=== PATIENT | male | born 1940 | race Caucasian/White ===

== ENCOUNTER 2017-02-17 22:45 | Inpatient (IN) | payer MEDICARE, BC ==
[2017-02-17] MEDS ORDERED: SODIUM CHLORIDE 0.9% 500 ML IV ONE (23:01)
--- NOTE | 2017-02-17 23:05 | Emergency Department Record ---
History of Present Illness - General Chief Complaint: General Stated Complaint: EUSEBIO Time Seen by Provider: 02/17/17 23:00 Source: Patient - History of Present Illness Initial Comments: The patient and his are visiting from [place] because they used to live here. noticed that his incision from his hip surgery began draining yesterday from the lower portion in his distal thigh. He had his hip surgery done earlier this year in October in [place]. In December he had a wound infection in the incision which was treated as an out patient with an antibiotic pill-- she thinks it was doxycycline and got better.This time the drainage is more at the lowest part of his incision in a different location along the incision. The skin around it has also become reddened. He states he feels like his heart is pounding inside his chest, he had uncontrollable shaking chills and rigors at home, and he is weak all over. He has not recorded a fever at home. Symptoms began about 1-2 hours ago. He denies chest pain, HENRIETTA, hdz, st, cough, ap, n, v , or urinary symptoms. MD Complaint: Weakness, Other (shakey, palpitations) - Related Data Home Medications Medication Instructions Recorded Confirmed Last Taken Canagliflozin [Invokana] 300 mg PO DAILY 02/17/17 02/17/17 Unknown Fenofibrate [Lipofen] 160 mg PO DAILY 02/17/17 02/17/17 Unknown Glimepiride [Amaryl] 4 mg PO DAILY 02/17/17 02/17/17 Unknown Pioglitazone HCl [Actos] 45 mg PO DAILY 02/17/17 02/17/17 Unknown Ramipril [Altace] 10 mg PO DAILY 02/17/17 02/17/17 Unknown Rosuvastatin Calcium [Crestor] 10 mg PO DAILY 02/17/17 02/17/17 Unknown Sitagliptin Phosphate [Januvia] 100 mg PO DAILY 02/17/17 02/17/17 Unknown Solifenacin Succinate [Vesicare] 5 mg PO DAILY 02/17/17 02/17/17 Unknown Allergies Allergy/AdvReac Type Severity Reaction Status Date / Time No Known Drug Allergies Allergy Verified 02/17/17 22:54 Review of Systems Reviewed: No additional complaints except as noted below Constitutional: Reports: As per HPI. Denies: Chills, Fever, Malaise, Night sweats, Weakness, Weight change Eyes: Reports: As per HPI. Denies: Eye discharge, Eye pain, Photophobia, Vision change ENT: Reports: As per HPI. Denies: Congestion, Dental pain, Ear pain, Epistaxis , Hearing loss, Throat pain Respiratory: Reports: As per HPI. Denies: Cough, Dyspnea, Hemoptysis, Stridor, Wheezes Cardiovascular: Reports: As per HPI. Denies: Arrhythmia, Chest pain, Dyspnea on exertion, Edema, Murmurs, Orthopnea, Palpitations, Paroxysmal nocturnal dyspnea, Rheumatic Fever, Syncope Endocrine: Reports: As per HPI. Denies: Fatigue, Heat or cold intolerance, Polydipsia, Polyuria Gastrointestinal: Reports: As per HPI. Denies: Abdominal pain, Constipation, Diarrhea, Hematemesis, Hematochezia, Melena, Nausea, Vomiting Genitourinary: Reports: As per HPI. Denies: Dysuria, Frequency, Hematuria, Incontinence, Retention, Testicular pain, Testicular mass, Urgency Musculoskeletal: Reports: As per HPI. Denies: Arthralgia, Back pain, Gout, Joint swelling, Myalgia, Neck pain Skin: Reports: As per HPI. Denies: Bruising, Change in color, Change in hair/ nails, Lesions, Pruritus, Rash Neurological: Reports: As per HPI. Denies: Abnormal gait, Confusion, Headache, Numbness, Paresthesias, Seizure, Tingling, Tremors, Vertigo, Weakness Psychiatric: Reports: As per HPI. Denies: Anxiety, Auditory hallucinations, Depression, Homicidal thoughts, Suicidal thoughts, Visual hallucinations Hematological/Lymphatic: Reports: As per HPI. Denies: Anemia, Blood Clots, Easy bleeding, Easy bruising, Swollen glands Past Medical History - SOCIAL HISTORY Smoking Status: Never smoker Alcohol Use: Rare - RESPIRATORY Hx Respiratory Disorders: No - CARDIOVASCULAR Hx Cardio Disorders: Yes Hx Hypertension: Yes - ENDOCRINE Hx Endocrine Disorders: Yes Hx Diabetes: Yes - PSYCH Hx Anxiety: Yes Physical Exam - General General Appearance: Alert, Oriented x3, Cooperative, No acute distress - Head Head exam: Normal inspection - Eye Eye exam: Normal appearance, PERRL Pupils: Normal accommodation - ENT ENT exam: Normal exam, Mucous membranes moist, Normal external ear exam, Normal orophraynx, TM's normal bilaterally Ear exam: Normal external inspection. negative: External canal tenderness Nasal Exam: Normal inspection. negative: Discharge, Sinus tenderness Mouth exam: Normal external inspection, Tongue normal Teeth exam: Normal inspection. negative: Dental caries Throat exam: Normal inspection. negative: Tonsillar erythema, Tonsillar exudate - Neck Neck exam: Normal inspection, Full ROM. negative: Tenderness - Respiratory Respiratory exam: Normal lung sounds bilaterally. negative: Respiratory distress - Cardiovascular Cardiovascular Exam: Normal rhythm, Normal heart sounds, Tachycardia - GI/Abdominal GI/Abdominal exam: Soft, Normal bowel sounds. negative: Tenderness - Rectal Rectal exam: Deferred - exam: Deferred - Extremities Extremities exam: Normal inspection, Full ROM, Normal capillary refill, Tenderness (Tenderness, erythema and drainage along distal most portion of surgical right hip incision. ) - Back Back exam: Reports: Normal inspection, Full ROM. Denies: Muscle spasm, Rash noted, Tenderness - Neurological Neurological exam: Alert, CN II-XII intact, Normal gait, Oriented X3, Reflexes normal - Psychiatric Psychiatric exam: Normal affect, Normal mood - Skin Skin exam: Dry, Intact, Normal color, Warm Course - Reevaluation(s) Reevaluation #1: Patient states that he is feeling more shakey and pounding inside again. He doesn't feel right. 02/18/17 00:27 Reevaluation #2: Wound culture taken after skin prep with betadine in sterile fashion. Drainage is pyrulent yellow-green in color. localized erythema around wound edges, without obvious fluctuance. 02/18/17 00:28 Reevaluation #3: Patient continues to have intermittent episodes of feeling terrible, shakey inside, and tachycardia which is intermittent. 02/18/17 01:32 Medical Decision Making - Management Options MDM Management: Additional Work-up Planned (e.g. ADM/Transfer/OP Study) ( Admission for rigors, cellulitis, wound infection, tachycardia) - Data Complexity MDM Data: Labs Ordered and/or Reviewed, X-Ray Ordered and/or Reviewed, EKG Ordered and/or Reviewed - Lab Data Result diagrams: 02/17/17 23:15 02/17/17 23:15 - EKG Data -: EKG Interpreted by Me (Sinus tachycardia, Q in lead III; flattened T's No acute changes.) EKG: No Acute Changes Disposition Disposition: Admit Clinical Impression: Cellulitis and abscess of right lower extremity, Rigors, Tachycardia Diabetes Qualifiers: Diabetes mellitus type: type 2 Diabetes mellitus complication status: with unspecified complications Diabetes mellitus manager intermediate insulin use: unspecified manager intermediate insulin use status Qualified Code(s): E11.8 - Type 2 diabetes mellitus with unspecified complications Disposition: Still a Patient at [facility] Decision to Admit: Admit from ER Decision to Admit Date: 02/18/17 Decision to Admit Time: 01:39 Accepting Physician: Dr. Nichole Condition: (1) Good Forms: Patient Portal Access
[2017-02-17 23:27] LABS: BASO % 0.5 % (0-6); EOS % 2.9 % (0-6); GRAN % 60.9 % (47-80); HEMATOCRIT 36.3 % (42.0-52.0); HEMOGLOBIN 11.5 gm/dl (14.0-18.0); LYMPH % 26.9 % (16-45); MEAN CORPUSCULAR HEMOGLOBIN 28.8 pg (27-33); MEAN CORPUSCULAR HGB CONC 31.7 g/dl (32-36); MEAN PLATELET VOLUME 9.8 fl (7.4-10.4); MONO % 8.8 % (0-9); PLATELET COUNT 279 K/uL (130-400); RED BLOOD COUNT 3.99 M/uL (4.40-5.70); RED CELL DISTRIBUTION WIDTH 16.1 % (11.5-14.5); WHITE BLOOD COUNT W/O DIFF 6.6 K/uL (4.2-12.2)
[2017-02-17 23:38] LABS: INR 0.96; LACTIC ACID 1.3 mmol/L (0.7-2.1); PROTHROMBIN TIME (PATIENT) 10.8 SECONDS (9.5-12.1)
[2017-02-17 23:50] LABS: GLUCOSE,RANDOM 160 mg/dL (70-110)
[2017-02-17 23:51] LABS: BLOOD UREA NITROGEN 41 mg/dL (9-20); CKMB 0.9 ug/L (0-6); CREATINE PHOSPHOKINASE 45 U/L (55-170); CREATININE 1.4 mg/dL (0.66-1.25); EST GLOMERULAR FILTRATION RATE 53 ml/min; TROPONIN I < 0.012 ng/mL (0.00-0.034)
[2017-02-18] MEDS ORDERED: CEFAZOLIN 2 Gram 2 GM/50 ML BAG IVPB ONE (00:14)
[2017-02-18 01:20] LABS: URINE APPEARANCE CLEAR; URINE BILIRUBIN NEGATIVE (NEGATIVE); URINE BLOOD NEGATIVE (NEGATIVE); URINE COLOR YELLOW; URINE KETONE NEGATIVE (NEGATIVE); URINE LEUKOCYTE ESTERASE NEGATIVE (NEGATIVE); URINE NITRITE NEGATIVE (NEGATIVE); URINE PROTEIN NEGATIVE (NEGATIVE); URINE UROBILINOGEN 0.2 E.U./dL (0.20 - 1.00)
[2017-02-18 01:22] LABS: URINE GLUCOSE (UA) >=1000 mg/dL (NEGATIVE)
[2017-02-18] MEDS ORDERED: AL HYDROX/MAG HYDROX 30ML UD PO PRN (02:10)
[2017-02-18] MEDS ORDERED: CEFAZOLIN 1 Gram 1 GM/50 ML BAG IVPB SCH (02:10)
[2017-02-18] MEDS ORDERED: ACETAMINOPHEN 500 MG TABLET PO PRN (02:10)
[2017-02-18 06:45] LABS: CREATINE PHOSPHOKINASE 38 U/L (55-170)
[2017-02-18 06:57] LABS: CKMB 0.7 ug/L (0-6)
[2017-02-18 06:59] LABS: TROPONIN I < 0.012 ng/mL (0.00-0.034)
[2017-02-18] MEDS: CEFAZOLIN 1 Gram 1 GM/50 ML BAG IVPB SCH ×2 (08:25→15:54)
[2017-02-18] MEDS: 0.9 % SODIUM CHLORIDE 1000ML 1,000 ML IV PRN ×2 (08:26→15:40)
--- NOTE | 2017-02-18 08:33 | RADIOLOGY REPORT ---
EXAM: CHEST, TWO VIEWS HISTORY: DIFFICULTY BREATHING. TECHNIQUE: Frontal and lateral views of the chest were obtained. Comparison: None. FINDINGS: The heart size is normal. Vague nodular density projecting over the lateral left lung base seen on the frontal view only may be artifactual. However, because the patient has nor prior exams for comparison, could consider further assessment with dedicated CT chest. The lungs are otherwise clear. No pneumothorax. IMPRESSION: VAGUE NODULAR DENSITY PROJECTING OVER THE LATERAL LEFT LUNG BASE COULD BE ARTIFACTUAL. CORRELATE WITH ANY PRIOR/OUTSIDE EXAMS. IF NONE ARE AVAILABLE, COULD CONSIDER FURTHER ASSESSMENT WITH DEDICATED CT CHEST. JOB NUMBER: [id number] MTDD
[2017-02-18] MEDS ORDERED: VESICARE 5 MG PO SCH (10:00)
[2017-02-18] MEDS ORDERED: JANUVIA 100 MG PO SCH (10:00)
[2017-02-18] MEDS ORDERED: GLIMEPIRIDE 2 MG TABLET PO SCH (10:00)
[2017-02-18] MEDS ORDERED: INVOKANA 300 MG PO SCH (10:00)
[2017-02-18] MEDS ORDERED: RAMIPRIL 2.5 MG CAPSULE PO SCH (10:00)
[2017-02-18] MEDS ORDERED: ATORVASTATIN 20 MG TABLET PO SCH (10:00)
[2017-02-18] MEDS ORDERED: PIOGLITAZONE HCL 15 MG TABLET PO SCH (10:00)
[2017-02-18] MEDS ORDERED: PATIENT OWN MED: FENOFIBRATE 160 MG PO SCH (10:00)
[2017-02-18] MEDS: TMP/SMZ 160MG/800MG TAB PO SCH ×2 (10:59→21:04)
[2017-02-18] MEDS: LORAZEPAM 0.5 MG TABLET PO PRN ×2 (15:40→20:53)
[2017-02-18 15:56] LABS: CKMB 0.8 ug/L (0-6)
[2017-02-18 16:08] LABS: TROPONIN I < 0.012 ng/mL (0.00-0.034)
--- NOTE | 2017-02-18 18:01 | Discharge Note ---
VTE H&P Assessment - Risk for VTE Risk for VTE: Yes Risk Level: Moderate Risk Assessment Date: 02/18/17 Risk Assessment Time: 09:00 VTE Orders Placed or Will Be Placed: Yes Discharge Medications - Discharge Medications Prescriptions: Cephalexin [Keflex] 500 mg PO QID #40 cap Sulfamethoxazole/Trimethoprim [Bactrim Ds Tablet] 1 each PO BID #20 tablet Home Medications: Ambulatory Orders Canagliflozin [Invokana] 300 mg PO DAILY 02/17/17 [Last Taken Unknown] Fenofibrate [Lipofen] 160 mg PO DAILY 02/17/17 [Last Taken Unknown] Glimepiride [Amaryl] 4 mg PO DAILY 02/17/17 [Last Taken Unknown] Pioglitazone HCl [Actos] 45 mg PO DAILY 02/17/17 [Last Taken Unknown] Ramipril [Altace] 10 mg PO DAILY 02/17/17 [Last Taken Unknown] Rosuvastatin Calcium [Crestor] 10 mg PO DAILY 02/17/17 [Last Taken Unknown] Sitagliptin Phosphate [Januvia] 100 mg PO DAILY 02/17/17 [Last Taken Unknown] Solifenacin Succinate [Vesicare] 5 mg PO DAILY 02/17/17 [Last Taken Unknown] Lorazepam [Ativan] 0.5 mg PO BID PRN 02/18/17 [Last Taken Unknown] Cephalexin [Keflex] 500 mg PO QID #40 cap 02/19/17 [Last Taken Unknown] Sulfamethoxazole/Trimethoprim [Bactrim Ds Tablet] 1 each PO BID #20 tablet 02/19 [Last Taken Unknown] Discharge Note - Date Date of Discharge Note: 02/19/17 Disposition: Home, Self-Care Condition: (1) Good Additional Instructions: follow up with orthopedic DrSalvador in [place] as scheduled on incisional suture abscess take bactrim DS twice a day take keflex 500 mg four times a day warm compresses to the open spot on the thigh three times a day follow up with primary Dr when back in [place] Referrals: MARY LUI [Other] Forms: Patient Portal Access Activity at Discharge: Increase Activity as Tolerated Diet at Discharge: Diabetic Diet
[2017-02-18] MEDS ORDERED: ENOXAPARIN 40 MG/0.4 ML SYR SQ SCH (18:15)
[2017-02-18] MEDS ORDERED: TRAMADOL HCL 50 MG TABLET PO PRN (22:00)
[2017-02-19] MEDS: CEFAZOLIN 1 Gram 1 GM/50 ML BAG IVPB SCH ×2 (01:18→08:37)
[2017-02-19] MEDS: 0.9 % SODIUM CHLORIDE 1000ML 1,000 ML IV PRN (01:19)
--- NOTE | 2017-02-19 09:01 | History and Physical Report ---
CHIEF COMPLAINT: Infection of the right leg/thigh. HISTORY OF CHIEF COMPLAINT: At the distal end of the right thigh incision there is an area that is purulent and red. There is not much erythema around it at this time but he said it was much worse in the ER last night. He was seen by Dr. Santiago and admitted to the hospital for cellulitis of the right leg, rigors, and tachycardia. PAST MEDICAL HISTORY: He had right hip replacement approximately 4 months ago in [place]. He has also had 3 previous hip replacements bilaterally, colon resection, kidney stents x3 on the left side. He also has hypertension, hypercholesterolemia, diabetes, anxiety. PAST SURGICAL HISTORY: As stated, he had the right hip surgery about 4-5 months ago, 3 hip surgeries prior to that bilaterally, colon resection, kidney stents x3 on the left side. MEDICATIONS ON ADMISSION: 1. Ativan 0.5 mg b.i.d. p.r.n. 2. Januvia 100 mg daily. 3. Crestor 10 mg daily. 4. Altace 10 mg daily. 5. Actos 45 mg daily. 6. Fenofibrate 160 mg daily. 7. Invokana 300 mg daily. 8. Amaryl 4 mg daily. 9. Vesicare 5 mg daily. ALLERGIES: No known drug allergies. SOCIAL HISTORY: Never a smoker. No drugs. Rare alcohol use. FAMILY HISTORY: Unremarkable. REVIEW OF SYSTEMS: HEENT: No upper respiratory infection symptoms, cough, cold, or congestion. Cardiovascular: No chest pain, palpitations, or arrhythmias. Respiratory: No cough, cold, or congestion. Gastrointestinal: No nausea, vomiting, diarrhea, black stools, or bloody stools. Genitourinary: No dysuria, hematuria, frequency, or burning on urination. Musculoskeletal: See chief complaint. There is drainage on the distal part of the right incision that he had to replace his hip. Neurological: No CVA, paralysis, or paresthesias. Endocrine: He does have diabetes. No hypothyroidism. Integument: See chief complaint. He has an infected area on the incision, possibly could be an infected stitch. The erythema is dissipated with the IV antibiotics he is receiving in the [facility]. PHYSICAL EXAMINATION: VITAL SIGNS: Height 6 feet 4 inches, weight 213 pounds. Temperature 97.8, pulse 95, blood pressure 130/85, pulse ox 98% on 2L. HEENT: Pupils are equal, round, and reactive to light and accommodation. Extraocular muscles are intact. Throat is clear. Nose is clear. Tympanic membranes are vale. NECK: Supple. No jugular venous distention. No hepatojugular reflux. No carotid bruits. Thyroid is smooth. CARDIOVASCULAR: Regular rate and rhythm without murmurs, clicks, rubs, or gallops. RESPIRATORY: Clear to auscultation and percussion. ABDOMEN: Soft and nontender. No hepatosplenomegaly. No masses, no tenderness. Bowel sounds are active. No bruits. EXTREMITIES: There is an incision on the right thigh area that is a long incision. On the distal end of the incision, there is an area that is purulent and draining and there is erythema around the area. He states that it is much better now. BREASTS: Normal male breasts. RECTAL: Deferred. GENITALIA: Deferred. NEUROLOGIC: Cranial nerves II-XII intact. No gross defects. Sensation normal. Strength normal. Deep tendon reflexes equal bilaterally. Babinski negative. MENTAL STATUS: Alert and oriented x3. IMPRESSION: 1. Cellulitis of the left leg with abscess in the incision which looks like a suture abscess. 2. Replacement of the right hip approximately 4-5 months ago in [place]. PLAN: IV Kefzol. Start oral Bactrim double strength b.i.d. and follow. MTDD
--- NOTE | 2017-02-20 13:22 | Discharge Summary ---
DISCHARGE DIAGNOSES: 1. Incisional abscess, possible suture-type abscess on the right thigh area from post right hip replacement October 2016. 2. Cellulitis of the right thigh. 3. Status post diabetes mellitus. 4. Status post anxiety. 5. Status post hypertension. 6. Status post hyperlipidemia. 7. Vague spot on the chest x-ray. Needs a followup chest x-ray, dedicated CT in the near future, 4-6 weeks. Could be artifactual. ATTENDING PHYSICIAN: Nixon Nichole DO REASON FOR HOSPITALIZATION: This 76-year-old male presented to the emergency department with fever and redness around the incision of the right hip with drainage, lower portion of the incision. Came to the emergency department, evaluated by Dr. Santiago and admitted to the hospital for IV antibiotics. He also was complaining about tachycardia and pounding in his chest. He had chills and shakes at home but no recorded fevers either at home or in the emergency department. There was a little redness with purulent drainage at the distal part of the incision. SIGNIFICANT FINDINGS: WBC 6600, hemoglobin 11.5, segs 60, lymphs 26, monos 8. BUN 14, creatinine 1.4. Sugar was a little bit elevated at 164, expected because of his diabetes. Cardiac enzymes were negative x3. Urine was negative. He had a chest x-ray. A vague nodular density projected over the lateral left lung base could be artifactual. Recommended followup correlation with either further chest x-ray or a possible dedicated CT of the chest. EKG showing a sinus tachycardia, Q wave in III, no acute changes in the ST areas. THERAPY PROVIDED: The patient was started on Kefzol 1 g every 8 hours, oral Bactrim double strength b.i.d. Feeling much better on the day of discharge. HOSPITAL COURSE: Improved. CONDITION ON DISCHARGE: Much improved. The drainage is slowing down. The erythema is gone. There is a little more redness in 2 other spots. It could be sutures starting to inflame up, and there is a little red area on the right chest that is most likely from the EKG patch. DISCHARGE INSTRUCTIONS: Follow up with his primary doctor when he gets back to [place]. He is planning to leave to go to [place] tomorrow. Follow up with his orthopedic doctor on Saturday. He has an appointment already 02/22/2017. Bring in the pill bottles when you go to see him. Bactrim double strength 1 b.i.d. for 10 days, Keflex 500 mg q.i.d. for 10 days, and warm compresses to the spots that are open and draining 3 times a day. Continue his home medications of Ativan 0.5 b.i.d. p.r.n., Januvia 100 mg daily, Crestor 10 mg daily, Altace 10 mg daily, Actos 45 mg daily, fenofibrate 160 daily, Invokana 300 mg daily, Amaryl 4 mg daily, Vesicare 5 mg daily. MTDD
== END 2017-02-19 09:52 | disposition home or self-care (01) | DRG 863 ==
LOC: ER 22:45 → MEDSURG 02-18 01:56
PROVIDERS: ADMIT Emergency Medicine; ATTEND Emergency Medicine
DX: T81.4XXA Infection following a procedure, initial encounter (principal); L02.415 Cutaneous abscess of right lower limb; E11.9 Type 2 diabetes mellitus without complications; Z79.84 Long term (current) use of oral hypoglycemic drugs; I10 Essential (primary) hypertension; E78.5 Hyperlipidemia, unspecified; E78.4 Other hyperlipidemia
CPT/HCPCS: 93041; 99285 ×2; 94760; 96365; 82550; 83605; 85025; 85610; 82553; 84484; 80048; 81003; 71020; 93005; 93010; J0690; 36416; 82948; 99223; J1650